=== PATIENT | female | born 1955 | race Caucasian/White ===

== ENCOUNTER → 2016-12-16 | Outpatient (CLI) | payer OTHER | LOC: FIMAGING 10:37 | DX: Z12.31 Encounter for screening mammogram for malignant neoplasm of breast (principal) | CPT/HCPCS: G0202 ==

== ENCOUNTER → 2017-12-17 | Outpatient (CLI) | payer OTHER | LOC: FIMAGING 09:41 | PROVIDERS: ATTEND Obstetrics & Gynecology Gynecology | DX: Z12.31 Encounter for screening mammogram for malignant neoplasm of breast (principal) ==

== ENCOUNTER 2018-02-05 21:04 | Emergency (ER) | payer OTHER ==
--- NOTE | 2018-02-05 21:50 | EDPHY ---
H & P Time Seen by Provider: 02/05/18 21:37 HPI/ROS: CHIEF COMPLAINT: "Bug bite" HISTORY OF PRESENT ILLNESS: 62-year-old immunocompetent female complaining of painful lesion to her right abdominal wall for the past 3 days with lymphangitic streaking. No fever no chills. Nonpruritic. No myalgias. No flu -like symptoms. PRIMARY CARE PROVIDER:Ravi kwon REVIEW OF SYSTEMS: A ten point review of systems was performed and is negative with the exception of the items mentioned in the HPI PAST MEDICAL & SURGICAL HISTORY: Hypertension. Tetanus up-to-date SOCIAL HISTORY: Nonsmoker PHYSICAL EXAM (Prior to examination, patient consented to physical exam, hands were washed and my usual and customary physical exam procedures followed) 1) GENERAL: Well-developed, well-nourished, alert and oriented. Appears to be in no acute distress. Smiling appears well 2) HEAD: Normocephalic, atraumatic 3) HEENT: Pupils equal, round, reactive to light bilaterally. Sclera anicteric. 4) NECK: Full range of motion, no meningeal signs. 5) LUNGS: Clear auscultation bilaterally, no wheezes, no rhonchi, no retractions. 6) HEART: Regular rate and rhythm, no murmur, no heave, no gallop. 7) ABDOMEN: Right abdominal wall lesion which is tender, non but pruritic, nonvesicular with lymphangitic streaking extending in a cephalad direction. No crepitus. Abdominal wall is nontender. No vesicles. Does not followed dermatomal distribution. No guarding, no rebound, no focal tenderness, negative McBurney's, negative De La Cruz's, negative Rovsing's, negative peritoneal sign, 8) MUSCULOSKELETAL: Moving all extremities, no focal areas of tenderness, no obvious trauma. No peripheral edema or discoloration. 9) BACK: No CVA tenderness, no midline vertebral tenderness, no fluctuance, no step-off, no obvious trauma, no visual or palpable abnormality. 10) SKIN: No rash, no petechiae. 11) Psychiatric: Patient is oriented X 3, there is no agitation. DIFFERENTIAL DIAGNOSIS: In no particular include but limited to cellulitis, necrotizing fasciitis, abscess, zoster Smoking Status: Former smoker Constitutional: Initial Vital Signs Temperature (C) 36.6 C 02/05/18 21:06 Heart Rate 64 02/05/18 21:06 Respiratory Rate 16 02/05/18 21:06 Blood Pressure 156/82 H 02/05/18 21:06 O2 Sat (%) 97 02/05/18 21:06 O2 Delivery Mode Room Air Allergies/Adverse Reactions: Sulfa (Sulfonamide Antibiotics) Allergy (Mild, Verified 02/05/18 21:09) Rash amoxicillin [From Augmentin] Allergy (Verified 02/05/18 21:09) clavulanic acid [From Augmentin] Allergy (Verified 02/05/18 21:09) Home Medications: Medication Instructions Recorded Cephalexin [Keflex] 500 mg PO TID 10 Days cap 02/05/18 Lisinopril 02/05/18 Zantac 02/05/18 MDM/Departure - [facility] ED Course/Re-evaluation: 9:48 p.m.: I think a trial of outpatient antibiotics is indicated in this patient as she is immunocompetent, I believe her to have decision-making capacity, doubt sepsis, no signs of systemic illness, I have had a lengthy discussion with her providing usual customary discharge precautions instructions and importance of returning. She is agreeable with this plan. I saw this patient independently based on established practice protocols. Care of patient under supervision of secondary supervising physician Dr Júnior Damian. Patient has a listed Augmentin allergy which she states causes abdominal cramping however no history of allergic reaction or anaphylaxis. Will initiate therapy with monotherapy of Keflex. No history of MRSA or chronic or recurrent skin lesions or infection. - Depart Disposition: Home, Routine, Self-Care Clinical Impression: Furuncle of abdominal wall Condition: Fair Instructions: Furunculosis and Carbunculosis (ED), Cephalexin (By mouth) Additional Instructions: Return to the ER if you develop redness, swelling, discharge, warmth to the wound, abdominal pain, or any other symptoms that concern you. Prescriptions: Cephalexin [Keflex] 500 mg PO TID 10 Days cap Referrals: [facility] [Provider Group] - 02/08/18
[2018-02-05] MEDS ORDERED: CEPHALEXIN 500MG PREPACK#4 BTL TAKEHOME ONE (21:51)
[2018-02-05 22:21] VITALS: BP 164/81
== END 2018-02-05 22:21 | disposition home or self-care (01) ==
DX: L02.221 Furuncle of abdominal wall (principal); I10 Essential (primary) hypertension; Z87.891 Personal history of nicotine dependence; W57.XXXA Bitten or stung by nonvenomous insect and other nonvenomous arthropods, initial encounter

== ENCOUNTER → 2018-12-31 | Outpatient (CLI) | payer OTHER | LOC: FIMAGING 08:33 | PROVIDERS: ATTEND Obstetrics & Gynecology Gynecology | DX: Z12.31 Encounter for screening mammogram for malignant neoplasm of breast (principal) ==